=== PATIENT | male | born 1980 | race Caucasian/White ===

== ENCOUNTER → 2018-06-14 16:53 | Outpatient (CLI) | payer OTHER, SELFPAY ==
[2018-06-14 17:05] LABS: Bacteria Urine None Seen; WBC Urine None Seen (0-5/HPF)
[2018-06-14 20:39] LABS: Blood Urea Nitrogen 16 mg/dL (9-20); Calcium 9.6 mg/dL (8.4-10.2); Carbon Dioxide 28 mmol/L (22-32); Chloride 101 mmol/L (98-107); Estimated Glomerular Filt Rate > 60.0 mL/min (>60); Glucose 84 mg/dL (70-100); HEMOLYSIS < 15 (0-50); Potassium 4.4 mmol/L (3.4-5.1); Sodium 141 mmol/L (137-145)
[2018-06-14 21:16] LABS: Appearance Urine UA Clear; Bilirubin Urine UA Negative (NEGATIVE); Color Urine UA Yellow; Glucose Urine UA Normal (Normal); Ketones Urine UA NEGATIVE (NEGATIVE); Leukocyte Esterase Urine UA NEGATIVE (NEGATIVE); Nitrite Urine UA Negative (Negative); Occult Blood Urine UA Negative (Negative); Protein Urine UA Negative (Negative); Specific Gravity Urine UA 1.025 (1.000-1.035); Urobilinogen Urine UA 0.2 E.U./dL (0.2)
[2018-06-14 21:17] LABS: RBC Urine 1-5/HPF (0-5/HPF)
== END ==
PROVIDERS: Visit Provider Internal Medicine
DX: R03.0 Elevated blood-pressure reading, without diagnosis of hypertension (principal)
CPT/HCPCS: 36415; 80048; 81001

== ENCOUNTER → 2018-07-21 10:19 | Outpatient (CLI) | payer OTHER, SELFPAY ==
[2018-07-21 12:32] LABS: Blood Urea Nitrogen 17 mg/dL (9-20); Calcium 9.6 mg/dL (8.4-10.2); Carbon Dioxide 28 mmol/L (22-32); Chloride 103 mmol/L (98-107); Estimated Glomerular Filt Rate > 60.0 mL/min (>60); Glucose 102 mg/dL (70-100); HEMOLYSIS 21 (0-50); Potassium 4.1 mmol/L (3.4-5.1); Sodium 144 mmol/L (137-145)
== END ==
PROVIDERS: PCP Internal Medicine; Visit Provider Internal Medicine
DX: I10 Essential (primary) hypertension (principal); E66.9 Obesity, unspecified
CPT/HCPCS: 36415; 80048

== ENCOUNTER → 2019-12-13 08:24 | Outpatient (CLI) | payer OTHER, SELFPAY ==
--- NOTE | 2019-12-13 08:26 | DI.RAD.S_ITS ---
PROCEDURE: XR LUMBAR SPINE MIN 4V INDICATIONS: Chronic progressive low back chronic progressive low back pa TECHNIQUE: 6 views of the lumbar spine were acquired. COMPARISON: [facility], , L-SPINE 2-3 VIEWS, 12/22/2012, 20:36. FINDINGS: Bones: 5 nonrib-bearing vertebrae are present. There is normal bony alignment. No acute vertebral body compression fractures. Multilevel lumbar spondylitic changes as before with interval progression in degenerative change. There are degenerative endplate changes, disc space loss and facet arthropathy most pronounced at L5-S1. No suspicious bony lesions. Soft tissues: Overlying bowel gas pattern is normal. No suspicious soft tissue calcifications. Oblique images: No pars defects. IMPRESSION: Multilevel lumbar spondylosis with interval progression of degenerative change. Findings are again most severe at L5-S1. No pars defects identified. Dictated by: Dhaval Mendoza M.D. on 12/13/2019 at 9:50 Approved by: Dhaval Mendoza M.D. on 12/13/2019 at 9:53
== END ==
PROVIDERS: PCP Nurse Practitioner Family; Referring Provider Physical Medicine & Rehabilitation; Visit Provider Physical Medicine & Rehabilitation
DX: M54.5 Low back pain (principal); M47.817 Spondylosis without myelopathy or radiculopathy, lumbosacral region; M47.816 Spondylosis without myelopathy or radiculopathy, lumbar region; G89.29 Other chronic pain; Z98.890 Other specified postprocedural states
CPT/HCPCS: 72110

== ENCOUNTER → 2020-01-01 16:08 | Outpatient (CLI) | payer OTHER, SELFPAY ==
--- NOTE | 2020-01-01 16:11 | DI.US.S_ITS ---
PROCEDURE: US THYROID INDICATIONS: ENLARGED THYROID TECHNIQUE: Real-time scanning was performed of the thyroid gland, with image documentation. COMPARISON: None. FINDINGS: Right: Thyroid lobe measures 5.1 x 1.8 x 2.3 cm, and is homogeneous in echotexture. Left: Thyroid lobe measures 5.4 x 1.6 x 2.4 cm, and is homogenous in echotexture. Isthmus: 6.0 mm thick. Nodule number: 1 Location: Left superior Size: 0.9 x 0.6 x 0.9 cm. Composition: Solid Echogenicity: Hypoechoic Shape: wider than tall. Margins: Smooth Echogenic foci: None Total points: 4 ACR TI-RADS category: Moderately suspicious IMPRESSION: Moderately suspicious subcentimeter left thyroid nodule. Given the small size, no follow up is warranted. ACR TI-RADS definitions and recommendations: TI-RADS 1 (benign): 0 points. FNA not needed. TI-RADS 2 (not suspicious): 2 points. FNA not needed. TI-RADS 3 (mildly suspicious): 3 points. * FNA if 2.5 cm or larger, follow up if 1.5 cm or larger (at 1, 3, and 5 years). TI-RADS 4 (moderately suspicious): 4-6 points. * FNA if 1.5 cm or larger, follow up if 1 cm or larger (at 1, 2, 3, and 5 years). TI-RADS 5 (highly suspicious): 7 points or more. * FNA if 1 cm or larger, follow up if 0.5 cm or larger (every year for 5 years). Dictated by: Viktor BRIDGES Interpreted: Leatha Muniz MD on 01/01/2020 at 16:43 Approved by: Juanjose Laws M.D. on 01/02/2020 at 11:19
== END ==
PROVIDERS: PCP Nurse Practitioner Family; Referring Provider Nurse Practitioner Family; Visit Provider Nurse Practitioner Family
DX: E04.1 Nontoxic single thyroid nodule (principal)
CPT/HCPCS: 76536

== ENCOUNTER → 2020-01-14 10:48 | Outpatient (CLI) | payer OTHER, SELFPAY ==
--- NOTE | 2020-01-14 10:53 | DI.MRI.S_ITS ---
PROCEDURE: MR LUMBAR SPINE WO CON INDICATIONS: Lower back pain TECHNIQUE: Noncontrast sagittal T1 spin echo and T2 fast echo, sagittal STIR, axial T1 and T2 fast spin echo through the lumbar spine. In cases with scoliosis, additional coronal T2 fast spin echo may be performed. COMPARISON: [facility], MR, L-SPINE WITH AND WITHOUT CONTR, 10/08/2009, 17:32. [facility], CR, XR LUMBAR SPINE MIN 4V, 12/13/2019, 8:21. FINDINGS: Image quality: Excellent. Alignment and Curvature: Mild levoconvex scoliotic curvature is noted. Bone Marrow: Marrow is of normal overall signal. No acute vertebral body compression fractures. Spinal Cord: Conus medullaris terminates at the L1 level. Visualized cord demonstrates normal signal and size. Paraspinous Soft Tissues: No paravertebral masses. T12-L1: Normal appearance. L1-L2: Mild loss of disc height is seen. Loss of disc signal is seen. Mild generalized disc bulge is seen. There is a central disc protrusion seen. [id number] bilateral neural foraminal narrowing is seen. These imaging findings have progressed compared to the prior study. L2-L3: Mild loss of disc height is seen. Loss of disc signal is seen. Mild to moderate disc bulge is seen, with a mild central disc protrusion. Mild facet joint hypertrophy is seen. Mild bilateral neural foraminal narrowing is seen. Mild central canal narrowing is seen. When comparison is made with the prior examination, these findings are similar. L3-L4: Mild loss of disc height is seen. Loss of disc signal is seen. Moderate disc bulge is seen, with a central disc protrusion. There is a focal annular fissure seen posteriorly. Mild facet joint hypertrophy is seen. There is at least moderate left-sided and moderate right-sided neural foraminal narrowing seen. At least moderate central canal narrowing is seen, as spine image 22. These imaging findings have progressed compared to the prior study. L4-L5: Mild loss of disc height is seen. Loss of disc signal is seen. Moderate disc bulge is seen, which is eccentric to the right. There is a focal annular fissure seen posteriorly. Mild facet joint hypertrophy is seen. There is moderate to severe bilateral neural foraminal narrowing seen, left worse than right. There is a degree of compression seen upon the exiting nerve roots. Moderate central canal narrowing is seen. These imaging findings have progressed compared to the prior study. L5-S1: Moderate loss of disc height is seen. Loss of disc signal is seen. Endplate irregularity is seen. Reactive marrow endplate changes are seen, which are hyperintense on T1-weighted and T2-weighted imaging and most consistent with fatty metaplasia (Modic type II changes). Moderate facet joint hypertrophy is seen. There is moderate to severe bilateral neural foraminal narrowing seen. There is a degree of compression seen upon the exiting nerve roots. Mild to moderate central canal narrowing is seen. There has been progression compared to 2009. IMPRESSION: Levels of lumbar spine degenerative change are seen, which are most prominent at L4-L5 and L5-S1 levels. The degenerative changes have progressed compared to 2009. Dictated by: Vinnie Torres M.D. on 01/15/2020 at 9:06 Approved by: Vinnie Torres M.D. on 01/15/2020 at 9:13
== END ==
PROVIDERS: PCP Nurse Practitioner Family; Referring Provider Physical Medicine & Rehabilitation; Visit Provider Physical Medicine & Rehabilitation
DX: M54.5 Low back pain (principal); M47.26 Other spondylosis with radiculopathy, lumbar region; M47.27 Other spondylosis with radiculopathy, lumbosacral region
CPT/HCPCS: 72148

== ENCOUNTER → 2020-04-10 07:10 | Outpatient (CLI) | payer OTHER, SELFPAY ==
[2020-04-10 08:04] LABS: Hematocrit 46.9 % (41-53); Mean Corpuscular HGB Conc 34.2 % (30-36); Mean Corpuscular Hemoglobin 29.5 PG (26-34); Mean Corpuscular Volume 86.4 fL (80-100); Platelet Count 263 X10^3/uL (150-400); Red Blood Cell Count 5.43 X10^6/uL (4.5-5.9); Red Cell Distribution Width 13.4 % (11.6-14.8); White Blood Cell Count 5.5 X10^3/uL (4.5-11.0)
[2020-04-10 08:18] LABS: Alanine Aminotransferase 33 IU/L (<50); Albumin 4.6 g/dL (3.5-5.0); Albumin Globulin Ratio 1.3 (1.0-2.8); Alkaline Phosphatase 57 U/L (38-126); Aspartate Aminotransferase 37 IU/L (17-59); BUN Creatinine Ratio 20.8 (6-22); Bilirubin Total 0.8 mg/dL (0.2-1.3); Blood Urea Nitrogen 21 mg/dL (9-20); Carbon Dioxide 30 mmol/L (22-32); Chloride 102 mmol/L (98-107); Cholesterol 174 mg/dL (140-199); Estimated Glomerular Filt Rate > 60.0 mL/min (>60); Globulin 3.6 g/dL (1.7-4.1); Glucose 116 mg/dL (70-100); HDL Cholesterol 36 mg/dL (40-60); HEMOLYSIS 19 (0-50); LDL Cholesterol Calculated 114 mg/dL (<100); Potassium 4.3 mmol/L (3.4-5.1); Sodium 140 mmol/L (137-145); Total Protein 8.2 g/dL (6.3-8.2); Triglycerides 118 mg/dL (35-150)
[2020-04-10 08:48] LABS: TSH w/ Reflex to FT4 1.45 uIU/mL (0.47-4.68)
[2020-04-10 13:17] LABS: Hemoglobin A1C% w Est Avg Glu 5.5 % (4.0-6.0)
== END ==
PROVIDERS: PCP Nurse Practitioner Family; Referring Provider Nurse Practitioner Family; Visit Provider Nurse Practitioner Family
DX: Z00.00 Encounter for general adult medical examination without abnormal findings (principal); Z13.6 Encounter for screening for cardiovascular disorders; E04.9 Nontoxic goiter, unspecified; R73.9 Hyperglycemia, unspecified
CPT/HCPCS: 36415; 80053; 80061; 83036; 84443; 85027

== ENCOUNTER → 2022-02-02 08:48 | Outpatient (CLI) | payer OTHER, SELFPAY ==
[2022-02-02 09:45] LABS: COVID19 -Nasal RAPID Negative (Negative)
== END ==
PROVIDERS: PCP Nurse Practitioner Family; Visit Provider Physical Medicine & Rehabilitation
DX: Z20.822 Contact with and (suspected) exposure to COVID-19 (principal)
CPT/HCPCS: 87635; C9803

== ENCOUNTER 2022-02-03 09:34 | Outpatient (CLI) | payer OTHER, SELFPAY ==
[2022-02-03] VITALS (7 sets, daily range): BP systolic 138–162; BP diastolic 75–95; PULSE 69–98; RESP 12–20; TEMP 36.4; O2SAT 98–100
--- NOTE | 2022-02-03 09:35 | DI.RAD.S_ITS ---
PROCEDURE: PAIN L/S FACET INJ/BLK 1ST ELIAZAR COMPARISON: [facility], MR, MR LUMBAR SPINE WO CON, 01/14/2020, 10:57. [facility], CR, XR LUMBAR SPINE MIN 4V, 12/13/2019, 8:21. INDICATIONS: SPONDYLOSIS FINDINGS: Fluoroscopic spot filming was performed to verify placement of spinal needles on both sides at the L4-L5 and L5-S1 levels, as labeled on the films. Appropriate location of the needle tips was confirmed by injection of iodinated contrast. IMPRESSION: Intraprocedural examination within normal limits. Dictated by: Vinnie Torres M.D. on 02/03/2022 at 10:58 Approved by: Vinnie Torres M.D. on 02/03/2022 at 11:00
[2022-02-03] MEDS: MIDAZOLAM 2 MG/2 ML VIAL IV (10:34)
[2022-02-03] MEDS: fentaNYL 100 MCG/2 ML INJ (10:34)
[2022-02-03] MEDS: BUPIVACAINE 0.5% (PF) VIAL 5 ML INJ (10:42)
[2022-02-03] MEDS: LIDOCAINE 1% 20 ML (10:42)
[2022-02-03] MEDS: IOPAMIDOL 15 ML VIAL 3 ML INJ (10:42)
[2022-02-03] MEDS: BETAMETHASONE 30 MG/5 ML MDV (10:42)
--- NOTE | 2022-02-03 10:55 | P.PCN_ITS ---
Date/Time/Diagnoses Date of procedure: 02/03/22 Time of procedure: 10:56 Pre-procedure diagnosis: 1. FACET ARTHROPATHY 2. AXIAL LBP 3. MULTILEVEL DDD Post-procedure diagnosis: same Procedure Notes Procedure: 1. FLUOROSCOPICALLY GUIDED CONTRAST CONTROLLED FACET JOINT INJECTIONS BILATERAL L4/5, L5/S1 Indications: Fredo is referred by Dr. Sifuentes for treatment of Axial LBP Physician: Immanuel Mcpherson Total Fluoroscopy time (seconds): 12 Total sedation minutes: 18 Complications: none Procedure in detail & Post-procedure care: FINDINGS Multilevel Facet Arthropathy with Clinically significant axial LBP DESCRIPTION OF PROCEDURE Fluoroscopically guided, contrast-controlled bilateral L4/5, L5/S1 facet joint injections. Following review of allergy and review of potential side effects and complications, including, but not necessarily limited to, infection, allergic reaction, local tissue breakdown, stroke, temporary or permanent nerve injury, paralysis, and possible , the patient indicated that the patient understood and agreed to proceed. An informed consent document was signed by the patient, witnessed by a nurse, and placed in the patient's chart. Additionally, other treatment options including medications, modalities, and physical therapy were reviewed with the patient. After review of previous anaesthesic history and IV conscious sedation the patient was deemed safe to proceed with today?s procedure with IV conscious sedation as ASA class II designation. Safety time-out was performed to confirm patient ID, procedure to be performed and site of procedure. IV sedation was accomplished with a combination of 2mg of Versed and 50mcg of Fentanyl was administered by the RN after DO order, titrated to patient comfort during the course of the procedure while the patient remained responsive to all verbal commands In the prone position, following sterile prep and drape of the lumbar region, the posterior aspect of the L4/5, L5/S1 facet joints were identified fluoroscopically. The skin was anesthetized via a 25-gauge 1.5inch needle with 1% lidocaine solution into the corresponding facet joints. At this point, a 22- gauge 3.5-inch spinal needle was atraumatically introduced and advanced under fluoroscopic guidance into the corresponding facet joints. Following negative aspiration, injections of approximately 0.2cc of Isovue 200 confirmed inte rarticular placement without vascular uptake. The identical procedure was then performed at the L4/5, L5/S1 facet joints on the left. Radiological data, including multiple fluoroscopic views of the lumbosacral spine, reveal a spinal needle at the L4/5, L5/S1 facet joints bilaterally. Subsequent views show flow of contrast material both superiorly and inferiorly within the joint space without vascular or intrathecal uptake. At this point, a total of 0.5cc including a mixture of 0.25cc Marcaine and 0.25cc betamethasone was injected without complication into each of the corresponding facet joints. The patient tolerated the procedure well without signs or symptoms of complications prior to transfer to the recovery area continued monitoring without incident. The patient was then transferred to the recovery area where they were observed for an appropriate period of time after the injection. The patient reported a VAS score of 7 prior to the procedure and a post- procedure VAS of 0. POST OP INSTRUCTIONS The patient was provided a Pain Log to continue to record their response to the target-specific procedure prior to follow-up visit with their referring physician. Additionally, specific post-injection care instructions and a contact number to our office were provided if concerns arise regarding possible complications associated with the procedure are suspected.
== END 2022-02-03 11:04 | disposition home or self-care (01) ==
PROVIDERS: PCP Naturopath; Referring Provider Physical Medicine & Rehabilitation; Visit Provider Physical Medicine & Rehabilitation
DX: M47.817 Spondylosis without myelopathy or radiculopathy, lumbosacral region (principal); M47.816 Spondylosis without myelopathy or radiculopathy, lumbar region; M51.37 Other intervertebral disc degeneration, lumbosacral region; M51.36 Other intervertebral disc degeneration, lumbar region
CPT/HCPCS: 64493; 64494; 99152; J0702; J2250; J3010

== ENCOUNTER → 2022-05-19 06:34 | Outpatient (CLI) | payer OTHER, SELFPAY ==
[2022-05-19 07:53] LABS: Add Manual Diff / Slide Review NO; Basophils Absolute Auto 0 /uL (0-100); Basophils Percent Auto 0.8 % (0-2); Eosinophils Absolute Auto 200 /uL (0-450); Eosinophils Percent Auto 2.7 % (2-4); Hematocrit 44.8 % (41-53); Hemoglobin 15.5 g/dL (13.5-17.5); Lymphocytes Absolute Auto 1900 /uL (1100-4500); Lymphocytes Percent Auto 31.7 % (25-40); Mean Corpuscular HGB Conc 34.6 % (30-36); Mean Corpuscular Hemoglobin 29.9 PG (26-34); Mean Corpuscular Volume 86.3 fL (80-100); Monocytes Absolute Auto 500 /uL (0-900); Monocytes Percent Auto 8.4 % (3-14); Neutrophils Absolute Auto 3400 /uL (1500-7000); Neutrophils Percent Auto 56.4 % (50-75); Platelet Count 288 X10^3/uL (150-400); Red Blood Cell Count 5.19 X10^6/uL (4.5-5.9); Red Cell Distribution Width 12.9 % (11.6-14.8)
[2022-05-19 08:01] LABS: Hemoglobin A1C% w Est Avg Glu 5.4 % (4.0-6.0)
[2022-05-19 09:41] LABS: Alanine Aminotransferase 35 IU/L (<50); Albumin 4.2 g/dL (3.5-5.0); Albumin Globulin Ratio 1.4 (1.0-2.8); Alkaline Phosphatase 54 U/L (38-126); Aspartate Aminotransferase 31 IU/L (17-59); BUN Creatinine Ratio 21.1 (6-22); Bilirubin Total 0.7 mg/dL (0.2-1.3); Blood Urea Nitrogen 19 mg/dL (9-20); Carbon Dioxide 28 mmol/L (22-32); Chloride 104 mmol/L (98-107); Cholesterol 169 mg/dL (140-199); Estimated Glomerular Filt Rate > 60 mL/min (>60); Globulin 2.9 g/dL (1.7-4.1); Glucose 102 mg/dL (70-100); HDL Cholesterol 40 mg/dL (40-60); HEMOLYSIS < 15 (0-50); LDL Cholesterol Calculated 104 mg/dL (<100); Potassium 3.9 mmol/L (3.4-5.1); Sodium 140 mmol/L (137-145); Total Protein 7.1 g/dL (6.3-8.2); Triglycerides 125 mg/dL (35-150)
[2022-05-20 08:34] LABS: Insulin Level Total 14.8 uIU/mL (2.6-24.9)
== END ==
PROVIDERS: PCP Naturopath; Referring Provider Naturopath; Visit Provider Naturopath
DX: Z00.00 Encounter for general adult medical examination without abnormal findings (principal); Z83.3 Family history of diabetes mellitus
CPT/HCPCS: 36415; 80053; 80061; 83036; 83525; 85025

== ENCOUNTER → 2023-08-19 08:02 | Outpatient (CLI) | payer OTHER, SELFPAY ==
[2023-08-19 08:25] LABS: Add Manual Diff / Slide Review NO; Basophils Absolute Auto 0 /uL (0-100); Basophils Percent Auto 0.5 % (0-2); Eosinophils Absolute Auto 100 /uL (0-450); Eosinophils Percent Auto 2.1 % (2-4); Hematocrit 44.9 % (41-53); Hemoglobin 15.6 g/dL (13.5-17.5); Lymphocytes Absolute Auto 2100 /uL (1100-4500); Lymphocytes Percent Auto 29.7 % (25-40); Mean Corpuscular HGB Conc 34.7 % (30-36); Mean Corpuscular Hemoglobin 29.7 PG (26-34); Mean Corpuscular Volume 85.6 fL (80-100); Monocytes Absolute Auto 600 /uL (0-900); Monocytes Percent Auto 8.7 % (3-14); Neutrophils Absolute Auto 4100 /uL (1500-7000); Platelet Count 291 X10^3/uL (150-400); Red Blood Cell Count 5.25 X10^6/uL (4.5-5.9); Red Cell Distribution Width 13.8 % (11.6-14.8); White Blood Cell Count 6.9 X10^3/uL (4.5-11.0)
[2023-08-19 09:11] LABS: Alanine Aminotransferase 37 IU/L (<50); Albumin 4.4 g/dL (3.5-5.0); Albumin Globulin Ratio 1.3 (1.0-2.8); Alkaline Phosphatase 56 U/L (38-126); Aspartate Aminotransferase 33 IU/L (17-59); BUN Creatinine Ratio 19.4 (6-22); Bilirubin Total 0.9 mg/dL (0.2-1.3); Blood Urea Nitrogen 19 mg/dL (9-20); Calcium 9.6 mg/dL (8.4-10.2); Carbon Dioxide 29 mmol/L (22-32); Chloride 101 mmol/L (98-107); Cholesterol 189 mg/dL (140-199); Estimated Glomerular Filt Rate > 60 mL/min (>60); Globulin 3.3 g/dL (1.7-4.1); Glucose 106 mg/dL (70-100); HDL Cholesterol 48 mg/dL (40-60); HEMOLYSIS < 15 (0-50); LDL Cholesterol Calculated 117 mg/dL (<100); Potassium 3.7 mmol/L (3.4-5.1); Sodium 138 mmol/L (137-145); Total Protein 7.7 g/dL (6.3-8.2); Triglycerides 121 mg/dL (35-150)
[2023-08-19 11:22] LABS: Hemoglobin A1C% w Est Avg Glu 5.7 % (4.0-6.0)
== END ==
PROVIDERS: PCP Naturopath; Referring Provider Naturopath; Visit Provider Naturopath
DX: Z00.00 Encounter for general adult medical examination without abnormal findings (principal); I10 Essential (primary) hypertension; Z83.3 Family history of diabetes mellitus
CPT/HCPCS: 36415; 80053; 80061; 83036; 85025

== ENCOUNTER → 2024-11-17 07:52 | Outpatient (CLI) | payer OTHER, SELFPAY ==
[2024-11-17 09:13] LABS: Hemoglobin A1C% w Est Avg Glu 5.5 % (4.0-6.0)
[2024-11-17 09:14] LABS: Add Manual Diff / Slide Review NO; Basophils Absolute Auto 100 /uL (0-100); Basophils Percent Auto 1.1 % (0-2); Eosinophils Absolute Auto 200 /uL (0-450); Eosinophils Percent Auto 3.2 % (2-4); Hemoglobin 14.3 g/dL (13.5-17.5); Lymphocytes Absolute Auto 1600 /uL (1100-4500); Lymphocytes Percent Auto 28.7 % (25-40); Mean Corpuscular Hemoglobin 29.5 PG (26-34); Mean Corpuscular Volume 86.8 fL (80-100); Monocytes Absolute Auto 600 /uL (0-900); Monocytes Percent Auto 10.1 % (3-14); Neutrophils Absolute Auto 3100 /uL (1500-7000); Neutrophils Percent Auto 56.9 % (50-75); Platelet Count 329 X10^3/uL (150-400); Red Blood Cell Count 4.84 X10^6/uL (4.5-5.9); Red Cell Distribution Width 13.9 % (11.6-14.8); White Blood Cell Count 5.5 X10^3/uL (4.5-11.0)
[2024-11-17 09:22] LABS: Alanine Aminotransferase 52 IU/L (<50); Albumin 4.2 g/dL (3.5-5.0); Albumin Globulin Ratio 1.4 (1.0-2.8); Alkaline Phosphatase 54 U/L (38-126); Aspartate Aminotransferase 35 IU/L (17-59); BUN Creatinine Ratio 21.2 (6-22); Bilirubin Total 0.5 mg/dL (0.2-1.3); Blood Urea Nitrogen 22 mg/dL (9-20); Calcium 9.1 mg/dL (8.4-10.2); Carbon Dioxide 27 mmol/L (22-32); Chloride 108 mmol/L (98-107); Cholesterol 174 mg/dL (140-199); Estimated Glomerular Filt Rate > 60 mL/min (>60); Globulin 3.1 g/dL (1.7-4.1); Glucose 102 mg/dL (70-100); HDL Cholesterol 39 mg/dL (40-60); HEMOLYSIS < 15 (0-50); LDL Cholesterol Calculated 113 mg/dL (<100); Sodium 141 mmol/L (137-145); Total Protein 7.3 g/dL (6.3-8.2); Triglycerides 110 mg/dL (35-150)
== END ==
LOC: LAB 07:54
PROVIDERS: PCP Naturopath; Referring Provider Naturopath; Visit Provider Naturopath
DX: Z00.00 Encounter for general adult medical examination without abnormal findings (principal); R73.03 Prediabetes
CPT/HCPCS: 36415; 80053; 80061; 83036; 85025